=== PATIENT | male | born 1935 ===

== ENCOUNTER 2025-06-13 07:11 | Emergency (ER) | payer OTHER ==
[~2025-06-13] VITALS: Ht 160 cm; Wt 74.8 kg
[2025-06-13] MEDS ORDERED: ASPI81CH PO (07:51)
[2025-06-13] MEDS ORDERED: NITR.4SL SL (07:52)
[2025-06-13] MEDS ORDERED: HYDROcodone 5-APAP 325 TAB PO ONE (10:15)
[2025-06-13] MEDS ORDERED: HYDR1TAB94 PO ×2 (10:18→10:19)
[2025-06-13 10:30] VITALS: BP 148/68
== END 2025-06-13 11:20 | disposition home or self-care (01) ==
LOC: ER 07:11
DX: S42.215A Unspecified nondisplaced fracture of surgical neck of left humerus, initial encounter for closed fracture (principal); S22.32XA Fracture of one rib, left side, initial encounter for closed fracture; Z79.82 Long term (current) use of aspirin; Z59.89 Other problems related to housing and economic circumstances; W01.0XXA Fall on same level from slipping, tripping and stumbling without subsequent striking against object, initial encounter
CPT/HCPCS: 70450; 71046; 73030; 73060; 73070; 99284-25; A9270